=== PATIENT | male | born 1950 | race American Indian/Alaskan Native ===

== ENCOUNTER 2021-04-27 09:12 | Emergency (ER) | payer MEDICARE ==
[2021-04-27 09:49] VITALS: BP 138/109
--- NOTE | 2021-04-27 10:35 | Emergency Department Report ---
ED Seizure HPI - General Chief Complaint: Seizure Stated Complaint: SEIZURE Time Seen by Provider: 04/27/21 10:27 Source: patient Mode of arrival: Ambulatory Limitations: No Limitations - History of Present Illness Initial Comments: Patient was brought in by ambulance for seizure. He actually states that he did not know what was going on. He states that he was aware of being in an ambulance and his daughter saying he needed to come here because of a seizure. He does not recall having a seizure. He admits that he did not take his medication yesterday. He states that he was at another doctor's office and did not take any of his seizure medication yesterday. He states he is otherwise compliant with his medication. He has no fevers or chills per there is no cough or congestion but there is no chest pain or shortness of breath. Has no back pain or headache. - Related Data Allergies Allergy/AdvReac Type Severity Reaction Status Date / Time No Known Allergies Allergy Verified 04/27/21 09:50 ED Review of Systems ROS: Stated complaint: SEIZURE Other details as noted in HPI Comment: All other systems reviewed and negative Constitutional: denies: fever Eyes: denies: vision change ENT: denies: throat pain Respiratory: denies: cough Cardiovascular: denies: chest pain Endocrine: denies: unexplained weight loss Gastrointestinal: denies: abdominal pain Genitourinary: denies: dysuria Musculoskeletal: denies: back pain Skin: denies: rash Neurological: as per HPI. denies: headache Hematological/Lymphatic: denies: easy bruising ED Past Medical Hx - Past Medical History Hx Hypertension: Yes Hx Seizures: Yes - Family History Family history: hypertension - Social History Smoking Status: Never Smoker ED Physical Exam - General Limitations: No Limitations, Other ( Pulse ox is noted and normal. Is not hypoxic.) General appearance: alert, in no apparent distress - Head Head exam: Present: atraumatic, normocephalic, normal inspection - Eye Eye exam: Present: normal appearance, PERRL, EOMI. Absent: scleral icterus - ENT ENT exam: Present: normal exam, normal orophraynx, normal external ear exam - Neck Neck exam: Present: normal inspection. Absent: meningismus - Respiratory Respiratory exam: Present: normal lung sounds bilaterally. Absent: respiratory distress - Cardiovascular Cardiovascular Exam: Present: regular rate, normal rhythm - GI/Abdominal GI/Abdominal exam: Present: soft, distended - Extremities Exam Extremities exam: Present: normal capillary refill. Absent: pedal edema - Back Exam Back exam: Absent: CVA tenderness (R), CVA tenderness (L) - Neurological Exam Neurological exam: Present: alert, oriented X3, CN II-XII intact, reflexes normal, other ( No pronator drift or dysdiadochokinesia). Absent: motor sensory deficit - Psychiatric Psychiatric exam: Present: normal affect, normal mood - Skin Skin exam: Present: warm, dry ED Course Vital Signs 04/27/21 09:49 Temperature 97.8 F Pulse Rate 69 Respiratory 18 Rate Blood Pressure 138/109 [Right] O2 Sat by Pulse 94 Oximetry - Reevaluation(s) Reevaluation #1: 04/27/21 10:35 Patient was discharged. ED Medical Decision Making - Medical Decision Making patient presents with reports of a seizure. He states that he was noncompliant with medication. At this time, he will be discharged. Etiology for the seizure was felt to be noncompliance. He has no fever or other infectious pathology or symptoms that would suggest meningitis or encephalitis. He has no tachypnea or tachycardia. There is no abdominal pain. I do not believe this represents any kind of metabolic derangement. There is no neurologic deficit at this time. I do not believe he has an intracranial space-occupying lesion. He was treated symptomatically. I offered to give him medication here. He stated that he would go home and take his own medication. Critical Care Time: No Critical care attestation.: If time is entered above; I have spent that time in minutes in the direct care of this critically ill patient, excluding procedure time. ED Disposition Clinical Impression: Seizure Disposition: 01 HOME / SELF CARE / HOMELESS Is pt being admited?: No Condition: Stable Instructions: Epilepsy Additional Instructions: Take your medication every day. Drink plenty of water. Follow-up with your regular doctor and your neurologist for recheck. Referrals: PRIMARY CAREMD [Referring] - 3-5 Days NICOLA VARGAS MD [Staff Physician] - 3-5 Days
== END 2021-04-27 11:57 | disposition home or self-care (01) ==
LOC: ED 09:12
DX: R56.9 Unspecified convulsions (principal); I10 Essential (primary) hypertension
CPT/HCPCS: 99281; 99282

== ENCOUNTER 2021-06-06 16:58 | Emergency (ER) | payer MEDICARE ==
[2021-06-06] MEDS ORDERED: levETIRAcetam 1000 MG/NS 0.75% 1,000 MG/100 ML BAG IV ONE (17:35)
--- NOTE | 2021-06-06 17:44 | Emergency Department Report ---
<DEMETRIUSRANULFO MarcosVic - Last Filed: 06/06/21 20:47> ED Seizure HPI - General Chief Complaint: Seizure Stated Complaint: SEIZURE/HEAD INJURY Time Seen by Provider: 06/06/21 17:33 Source: patient, EMS Mode of arrival: Stretcher Limitations: Altered Mental Status - History of Present Illness Initial Comments: Patient is 71 years old male with history of seizure. Patient brought to the emergency room via EMS from home for evaluation after he had 1 episode of generalized tonic-clonic seizure at home. Patient fell after a seizure presented with multiple abrasion and small laceration to the chin. Bleeding controlled. Patient now alert, oriented x3 in no acute distress. Patient stated that he did not took his medication for the last few days. Patient denied any headache, neck pain, chest pain, shortness of breath, abdominal pain, nausea or vomiting. MD Complaint: seizure -: Sudden Description of Episode: loss of consciousness, tonic-clonic movement Witnessed:: Yes Trauma: Yes Seizure History: known seizure disorder Place: home Possible Precipitating Event: none Associated Symptoms: denies other symptoms - Related Data Allergies Allergy/AdvReac Type Severity Reaction Status Date / Time No Known Allergies Allergy Verified 04/27/21 09:50 ED Review of Systems Comment: All other systems reviewed and negative Constitutional: denies: chills, diaphoresis Respiratory: denies: cough, shortness of breath, SOB with exertion Cardiovascular: denies: chest pain, palpitations Gastrointestinal: denies: abdominal pain, nausea, vomiting Musculoskeletal: denies: back pain Neurological: denies: headache, weakness, numbness ED Past Medical Hx - Past Medical History Previous Medical History?: Yes Hx Hypertension: Yes Hx Seizures: Yes - Social History Smoking Status: Never Smoker ED Physical Exam - General Limitations: Altered Mental Status General appearance: alert, in no apparent distress - Head Head exam: Present: other (Multiple abrasion and laceration to the chin.) - Eye Eye exam: Present: normal appearance - ENT ENT exam: Present: normal exam, normal orophraynx, mucous membranes moist - Neck Neck exam: Present: normal inspection, full ROM. Absent: tenderness, meningismus - Respiratory Respiratory exam: Present: normal lung sounds bilaterally - Cardiovascular Cardiovascular Exam: Present: regular rate, normal rhythm, normal heart sounds - GI/Abdominal GI/Abdominal exam: Present: soft, normal bowel sounds. Absent: distended, tenderness, guarding, rebound, rigid, organomegaly (So they have to provide referral dry), mass, bruit, hernia - Extremities Exam Extremities exam: Present: normal inspection, full ROM, normal capillary refill. Absent: tenderness - Back Exam Back exam: Present: normal inspection, full ROM. Absent: CVA tenderness (R), CVA tenderness (L) - Neurological Exam Neurological exam: Present: alert, oriented X3, CN II-XII intact - Psychiatric Psychiatric exam: Present: normal mood - Skin Skin exam: Present: abrasion - Laceration /Wound Repair Face Wound Location: face Wound's Depth, Shape: linear Wound Explored: clean Wound Repaired With: Dermabond Sterile Dressing Applied?: Yes ED Medical Decision Making - Lab Data Result diagrams: 06/06/21 17:42 06/06/21 17:42 - Radiology Data Radiology results: report reviewed - Medical Decision Making Patient is 71 years old male with history of seizure. Patient brought to the emergency room via EMS from home for evaluation after he had 1 episode of generalized tonic-clonic seizure at home. Patient fell after a seizure presented with multiple abrasion and small laceration to the chin. Bleeding controlled. Patient now alert, oriented x3 in no acute distress. Patient stated that he did not took his medication for the last few days. Patient denied any headache, neck pain, chest pain, shortness of breath, abdominal pain, nausea or vomiting. Patient remained stable in the ER with a stable vital sign. CT brain is negative for acute finding. CT facial bones showed multiple bone fracture including 3 bilateral mandibular fractures, zygomatic fracture, orbital fracture and maxillary fracture. Patient GCS remained 15. I discussed the patient with [facility] trauma team and patient has been accepted by Dr. Gary Paulino. Critical Care Time: Yes Critical care time in (mins) excluding proc time.: 35 ED Disposition Clinical Impression: Seizure, Facial trauma, Multiple facial bone fractures Disposition: 04 INTERMEDIATE CARE FACILITY Is pt being admited?: No Condition: Stable Referrals: PRIMARY CARE, [Primary Care Provider] - 3-5 Days <LONI FRANKEL - Last Filed: 06/07/21 00:46> ED Review of Systems ROS: Stated complaint: SEIZURE/HEAD INJURY Other details as noted in HPI ED Course Vital Signs 06/06/21 06/06/21 06/06/21 17:05 17:21 17:30 Temperature 98 F Pulse Rate 90 68 77 Respiratory 16 18 15 Rate Blood Pressure 232/120 Blood Pressure 200/100 [Right] O2 Sat by Pulse 98 98 98 Oximetry 06/06/21 06/06/21 06/06/21 17:46 18:00 18:15 Temperature Pulse Rate 71 63 Respiratory 14 14 Rate Blood Pressure 196/120 196/120 109/84 Blood Pressure [Right] O2 Sat by Pulse 98 97 Oximetry 06/06/21 06/06/21 06/06/21 18:30 19:12 19:16 Temperature Pulse Rate 55 L 78 113 H Respiratory 18 23 25 H Rate Blood Pressure 205/107 Blood Pressure [Right] O2 Sat by Pulse 98 92 97 Oximetry 06/06/21 06/06/21 06/06/21 19:30 19:46 20:00 Temperature Pulse Rate 63 69 Respiratory 19 17 22 Rate Blood Pressure 109/84 205/107 205/107 Blood Pressure [Right] O2 Sat by Pulse 96 94 Oximetry 06/06/21 06/06/21 06/06/21 20:16 20:30 20:46 Temperature Pulse Rate 66 65 76 Respiratory 20 14 21 Rate Blood Pressure 205/107 205/107 205/107 Blood Pressure [Right] O2 Sat by Pulse 94 93 93 Oximetry 06/06/21 06/06/21 06/06/21 21:00 21:10 21:14 Temperature 98.2 F 98.6 F Pulse Rate 74 68 Respiratory 21 18 Rate Blood Pressure 205/107 Blood Pressure 200/113 [Right] O2 Sat by Pulse 100 Oximetry 06/06/21 06/06/21 06/06/21 21:16 21:30 21:46 Temperature Pulse Rate 65 64 66 Respiratory 17 22 19 Rate Blood Pressure 200/113 218/99 190/97 Blood Pressure [Right] O2 Sat by Pulse Oximetry 06/06/21 06/06/21 06/06/21 22:00 22:16 22:30 Temperature Pulse Rate 71 66 66 Respiratory 21 22 21 Rate Blood Pressure 190/97 170/65 171/78 Blood Pressure [Right] O2 Sat by Pulse 99 Oximetry - Reevaluation(s) Reevaluation #1: 06/06/21 21:18 Hydralazine ordered for elevated blood pressure. ED Medical Decision Making - Lab Data Result diagrams: 06/06/21 17:42 06/06/21 17:42 Vital Signs 06/06/21 06/06/21 06/06/21 17:05 17:21 17:30 Temperature 98 F Pulse Rate 90 68 77 Respiratory 16 18 15 Rate Blood Pressure 232/120 Blood Pressure 200/100 [Right] O2 Sat by Pulse 98 98 98 Oximetry 06/06/21 06/06/21 06/06/21 17:46 18:00 18:15 Temperature Pulse Rate 71 63 Respiratory 14 14 Rate Blood Pressure 196/120 196/120 109/84 Blood Pressure [Right] O2 Sat by Pulse 98 97 Oximetry 06/06/21 06/06/21 06/06/21 18:30 19:12 19:16 Temperature Pulse Rate 55 L 78 113 H Respiratory 18 23 25 H Rate Blood Pressure 205/107 Blood Pressure [Right] O2 Sat by Pulse 98 92 97 Oximetry 06/06/21 06/06/21 06/06/21 19:30 19:46 20:00 Temperature Pulse Rate 63 69 Respiratory 19 17 22 Rate Blood Pressure 109/84 205/107 205/107 Blood Pressure [Right] O2 Sat by Pulse 96 94 Oximetry 06/06/21 06/06/21 06/06/21 20:16 20:30 20:46 Temperature Pulse Rate 66 65 76 Respiratory 20 14 21 Rate Blood Pressure 205/107 205/107 205/107 Blood Pressure [Right] O2 Sat by Pulse 94 93 93 Oximetry 06/06/21 06/06/21 06/06/21 21:00 21:10 21:14 Temperature 98.2 F 98.6 F Pulse Rate 74 68 Respiratory 21 18 Rate Blood Pressure 205/107 Blood Pressure 200/113 [Right] O2 Sat by Pulse 100 Oximetry 06/06/21 06/06/21 06/06/21 21:16 21:30 21:46 Temperature Pulse Rate 65 64 66 Respiratory 17 22 19 Rate Blood Pressure 200/113 218/99 190/97 Blood Pressure [Right] O2 Sat by Pulse Oximetry 06/06/21 06/06/21 06/06/21 22:00 22:16 22:30 Temperature Pulse Rate 71 66 66 Respiratory 21 22 21 Rate Blood Pressure 190/97 170/65 171/78 Blood Pressure [Right] O2 Sat by Pulse 99 Oximetry Lab Results 06/06/21 06/06/21 06/07/21 Range/Units 17:42 17:42 Unknown WBC 11.4 H (4.5-11.0) K/mm3 RBC 4.28 (3.65-5.03) M/mm3 Hgb 14.5 (11.8-15.2) gm/dl Hct 43.7 (35.5-45.6) % MCV 102 H (84-94) fl MCH 34 H (28-32) pg MCHC 33 (32-34) % RDW 14.1 (13.2-15.2) % Plt Count 240 (140-440) K/mm3 Lymph % (Auto) 16.5 (13.4-35.0) % [place] % (Auto) 6.0 (0.0-7.3) % Eos % (Auto) 0.4 (0.0-4.3) % Baso % (Auto) 0.2 (0.0-1.8) % Lymph # (Auto) 1.9 (1.2-5.4) K/mm3 [place] # (Auto) 0.7 (0.0-0.8) K/mm3 Eos # (Auto) 0.0 (0.0-0.4) K/mm3 Baso # (Auto) 0.0 (0.0-0.1) K/mm3 Seg Neutrophils % 76.9 H (40.0-70.0) % Seg Neutrophils # 8.8 H (1.8-7.7) K/mm3 Sodium 141 (137-145) mmol/L Potassium 3.5 L (3.6-5.0) mmol/L Chloride 102.9 (98-107) mmol/L Carbon Dioxide 23 (22-30) mmol/L Anion Gap 19 mmol/L BUN 8 L (9-20) mg/dL Creatinine 0.9 (0.8-1.3) mg/dL Estimated GFR > 60 ml/min BUN/Creatinine Ratio 9 % Glucose 122 H (75-100) mg/dL Calcium 10.4 H (8.4-10.2) mg/dL Total Bilirubin 0.70 (0.1-1.2) mg/dL Direct Bilirubin < 0.2 (0-0.2) mg/dL Indirect Bilirubin 0.5 mg/dL AST 17 (5-40) units/L ALT 8 (7-56) units/L Alkaline Phosphatase 170 H (35-129) units/L Total Protein 7.7 (6.3-8.2) g/dL Albumin 4.1 (3.9-5) g/dL Albumin/Globulin Ratio 1.1 % Urine Color Yellow (Yellow) Urine Turbidity Clear (Clear) Urine pH 8.0 H (5.0-7.0) Ur Specific [place] 1.014 (1.003-1.030) Urine Protein <15 mg/dl (Negative) mg/dL Urine Glucose (UA) Neg (Negative) mg/dL Urine Ketones Neg (Negative) mg/dL Urine Blood Sm (Negative) Urine Nitrite Neg (Negative) Urine Bilirubin Neg (Negative) Urine Urobilinogen 4.0 (<2.0) mg/dL Ur Leukocyte Esterase Neg (Negative) Urine WBC (Auto) 6.0 (0.0-6.0) /HPF Urine RBC (Auto) 8.0 (0.0-6.0) /HPF Urine Mucus Few /HPF - Radiology Data Radiology results: report reviewed, image reviewed CT MAXILLOFACIAL WITHOUT CONTRAST INDICATION / CLINICAL INFORMATION: FALL, FASCIAL TRAUMA. TECHNIQUE: All CT scans at this location are performed using CT dose reduction for ALARA by means of automated exposure control. COMPARISON: N one available. FINDINGS: FACIAL BONES: Multiple facial fractures are identified. There are 3 mandibular fractures. Fractures are present through the mandibular necks bilaterally with bayonet deformity on the left and marked rotation of the condyle on the right. The condyle is directed anteriorly towards the pterygoid plate. On the right there is dislocation of the condyle from the articular fossa. In addition there is a fracture through the anterior body of the mandible on the left. This violates adjacent tooth sockets and must be considered an open fracture. A fourth fracture line is suspected along the anterior aspect of the body of the mandible on the right. Aeration of the mandibular symphysis and anterior body of the mandible is limited secondary to patient motion. Complex fractures of the left maxilla are noted. The posterior lateral wall of the left maxilla is noted. There is a mildly depressed fracture of the anterior wall of the maxilla. Fractures extend into the superior alveolar ridge which is edentulous. Additionally noted is a fracture of the left pterygoid plate. Additional facial fractures are demonstrated. There is a minimally displaced fracture of the lateral orbital wall on the left There is a comminuted fracture of the left zygomatic arch. There is diastases at the frontozygomatic suture on the left. DIRECTOR OF ELEMENTARY EDUCATION SPACES: A deep fascial plane emphysematous changes are present in the left policy writer sales space secondary to maxillary fracture. SALIVARY GLANDS: PARANASAL SINUSES: No significant abnormality. NASAL CAVITY:No abnornality. ORBITS: Globes, optic nerves and extraocular muscles have an unremarkable appearance. TEMPORAL BONES:Visualized mastoid air cells and the middle ear cavities are normally pneumatized. VISUALIZED INTRACRANIAL STRUCTURES: Please refer to CT head which is dictated separately. ADDITIONAL FINDINGS: There is marked soft tissue swelling of the left cheek secondary to hematoma. IMPRESSION: 1. At least 3 and possibly 4 mandibular fractures are demonstrated as described in detail above. 2. Complex fracture involving left maxilla and left zygomatic arch. 3. Nondisplaced fracture left pterygoid plate. 4. Dislocation of the fractured right mandibular condyle from the articular fossa. Signer Name: Thierno Aden MD Signed: 2020 7:20 PM Workstation Name: [id number] CT HEAD WITHOUT CONTRAST INDICATION : Seizure. TECHNIQUE: Axial imaging performed from the skull apex through the skull base without the use of contras t. Sagittal and coronal reformatted images. All CT scans at this location are performed using CT dose reduction for ALARA by means of automated exposure control. COMPARISON: None FINDINGS: Parenchyma: No acute intracranial hemorrhage or parenchymal abnormality. Mild diffuse cortical volume loss and mild chronic ischemic changes in the white matter are noted and appear appropriate for this person's age. No extra-axial fluid collection or chronic infarct. Ventricles: Ventricles are normal in size and appear symmetric. Bones: Fractures of the left lateral orbit wall, left zygoma, left posterolateral maxillary sinus wall and left anterior maxillary sinus wall are identified. Displaced bilateral mandibular neck fractures are also identified. Please refer to the CT facial bones report. Sinuses: Sinuses and mastoid air cells are clear. Soft tissues: Soft tissues including the orbits appear normal. IMPRESSION: No acute intracranial abnormality is appreciated. Multiple facial fractures as described. Further evaluation with CT facial bones is recommended. Signer Name: Bill Lamar Jr, MD Signed: 06/06/2021 7:01 PM Workstation Name: [id number] Critical care attestation.: If time is entered above; I have spent that time in minutes in the direct care of this critically ill patient, excluding procedure time. ED Disposition Is pt being admited?: No Does the pt Need Aspirin: No
[2021-06-06 18:20] LABS: Basophils % (Auto) 0.2 % (0.0-1.8); Eosinophils % (Auto) 0.4 % (0.0-4.3); Hematocrit 43.7 % (35.5-45.6); Hemoglobin 14.5 gm/dl (11.8-15.2); Lymphocytes # (Auto) 1.9 K/mm3 (1.2-5.4); Lymphocytes % (Auto) 16.5 % (13.4-35.0); Mean Corpuscular HGB Conc 33 % (32-34); Mean Corpuscular Volume 102 fl (84-94); Monocytes # (Auto) 0.7 K/mm3 (0.0-0.8); Platelet Count 240 K/mm3 (140-440); Red Blood Count 4.28 M/mm3 (3.65-5.03); Red Cell Distribution Width 14.1 % (13.2-15.2)
[2021-06-06 18:43] LABS: Alanine Aminotransferase 8 units/L (7-56); Albumin 4.1 g/dL (3.9-5); BUN/Creatinine Ratio 9; Blood Urea Nitrogen 8 mg/dL (9-20); Calcium 10.4 mg/dL (8.4-10.2); Hemolysis Index 4
[2021-06-06 18:49] LABS: Bilirubin,Direct < 0.2 mg/dL (0-0.2)
--- NOTE | 2021-06-06 20:06 | Cat Scan Report ---
CT HEAD WITHOUT CONTRAST INDICATION : Seizure. TECHNIQUE: Axial imaging performed from the skull apex through the skull base without the use of con trast. Sagittal and coronal reformatted images. All CT scans at this location are performed using C T dose reduction for ALARA by means of automated exposure control. COMPARISON: None FINDINGS: Parenchyma: No acute intracranial hemorrhage or parenchymal abnormality. Mild diffuse cortical volum e loss and mild chronic ischemic changes in the white matter are noted and appear appropriate for thi s person's age. No extra-axial fluid collection or chronic infarct. Ventricles: Ventricles are normal in size and appear symmetric. Bones: Fractures of the left lateral orbit wall, left zygoma, left posterolateral maxillary sinus wa ll and left anterior maxillary sinus wall are identified. Displaced bilateral mandibular neck fractu res are also identified. Please refer to the CT facial bones report. Sinuses: Sinuses and mastoid air cells are clear. Soft tissues: Soft tissues including the orbits appear normal. IMPRESSION: No acute intracranial abnormality is appreciated. Multiple facial fractures as described. Further evaluation with CT facial bones is recommended. Signer Name: Bill Lamar Jr, MD Signed: 06/06/2021 8:01 PM Workstation Name: [id number]
--- NOTE | 2021-06-06 20:24 | Cat Scan Report ---
CT MAXILLOFACIAL WITHOUT CONTRAST INDICATION / CLINICAL INFORMATION: FALL, FASCIAL TRAUMA. TECHNIQUE: All CT scans at this location are performed using CT dose reduction for ALARA by means of automated e xposure control. COMPARISON: None available. FINDINGS: FACIAL BONES: Multiple facial fractures are identified. There are 3 mandibular fractures. Fractures a re present through the mandibular necks bilaterally with bayonet deformity on the left and marked rot ation of the condyle on the right. The condyle is directed anteriorly towards the pterygoid plate. On the right there is dislocation of the condyle from the articular fossa. In addition there is a fract ure through the anterior body of the mandible on the left. This violates adjacent tooth sockets and m ust be considered an open fracture. A fourth fracture line is suspected along the anterior aspect of the body of the mandible on the right. Aeration of the mandibular symphysis and anterior body of the mandible is limited secondary to patient motion. Complex fractures of the left maxilla are noted. The posterior lateral wall of the left maxilla is noted. There is a mildly depressed fracture of the ant erior wall of the maxilla. Fractures extend into the superior alveolar ridge which is edentulous. Add itionally noted is a fracture of the left pterygoid plate. Additional facial fractures are demonstrat ed. There is a minimally displaced fracture of the lateral orbital wall on the left There is a commin uted fracture of the left zygomatic arch. There is diastases at the frontozygomatic suture on the lef t. ACTING PROFESSOR SPACES: A deep fascial plane emphysematous changes are present in the left senior network administrator spac e secondary to maxillary fracture. SALIVARY GLANDS: PARANASAL SINUSES: No significant abnormality. NASAL CAVITY:No abnornality. ORBITS: Globes, optic nerves and extraocular muscles have an unremarkable appearance. TEMPORAL BONES:Visualized mastoid air cells and the middle ear cavities are normally pneumatized. VISUALIZED INTRACRANIAL STRUCTURES: Please refer to CT head which is dictated separately. ADDITIONAL FINDINGS: There is marked soft tissue swelling of the left cheek secondary to hematoma. IMPRESSION: 1. At least 3 and possibly 4 mandibular fractures are demonstrated as described in detail above. 2. Complex fracture involving left maxilla and left zygomatic arch. 3. Nondisplaced fracture left pterygoid plate. 4. Dislocation of the fractured right mandibular condyle from the articular fossa. Signer Name: Thieron Aden MD Signed: 06/06/2021 8:20 PM Workstation Name: [id number]
[2021-06-06] MEDS ORDERED: hydrALAZINE 20 MG/1 ML INJ IV ONE (21:18)
[2021-06-07 00:12] LABS: Bilirubin,Urine NEG (Negative); Blood,Urine SM (Negative); Color,Urine Yellow (Yellow); Mucus,Urine FEW /HPF; Protein,Urine <15 mg/dL mg/dL (Negative)
[2021-06-07 00:58] VITALS: BP 185/92
--- NOTE | 2021-06-07 13:27 | Electrocardiograph Report ---
[facility] Test Date: 2021-06-06 Test Time: 17:21:40 Pat Name: NOA BARNARD Department: Room: Gender: M Liability Claims Examiner: CJ : 1950 Requested By: RANULFO HAGEN Order Number: [id number] Reading MD: Suni Tolliver Measurements Intervals [place] Rate: 62 P: 48 OK: 166 QRS: 12 QRSD: 87 T: 50 QT: 410 QTc: 418 Interpretive Statements Sinus rhythm Left atrial enlargement No previous ECG available for comparison Electronically Signed On 06-07-2021 13:27:19 EST by Suni Tolliver
== END 2021-06-07 00:20 ==
LOC: ED 16:58
DX: S02.69XA Fracture of mandible of other specified site, initial encounter for closed fracture (principal); S02.402A Zygomatic fracture, unspecified side, initial encounter for closed fracture; S02.85XA Fracture of orbit, unspecified, initial encounter for closed fracture; G40.909 Epilepsy, unspecified, not intractable, without status epilepticus; S01.81XA Laceration without foreign body of other part of head, initial encounter; I10 Essential (primary) hypertension; X58.XXXA Exposure to other specified factors, initial encounter; Y93.89 Activity, other specified; Y92.89 Other specified places as the place of occurrence of the external cause; Y99.8 Other external cause status
CPT/HCPCS: 12011; 36415; 70450; 70486; 80048; 80076; 81001; 85025; 93005; 96365; 96366; 96367; 96375; 99291; J0360; J0690; J1953